=== PATIENT | male | born 2000 | race Caucasian/White ===

== ENCOUNTER 2019-05-25 18:38 | Emergency (ER) | payer BC ==
[~2019-05-25] VITALS: Ht 180.3 cm; Wt 86.4 kg
[2019-05-25 18:44] VITALS: BP 113/78; PULSE 76; TEMP 97.3
== END 2019-05-25 19:55 | disposition home or self-care (01) ==
LOC: COL.ER 18:38
DX: Z77.21 Contact with and (suspected) exposure to potentially hazardous body fluids (principal)